=== PATIENT | female | born 1990 | race Asian ===

== ENCOUNTER 2017-01-16 11:11 | Emergency (ER) | payer SELFPAY ==
[~2017-01-16] VITALS: Ht 170.2 cm; Wt 81.8 kg
[~2017-01-16 11:11] MED LIST: AMOXICILLIN 50500 MG PO; IBU800 M1 PO; NORCO 325 MG-51 TAB PO; PERCOCET 325 MG1 TA2 PO; TYLENOL 500MG500 MG PO; ZANTAC 7575 MG PO; ZYRTEC 10MG10 MG PO
[2017-01-16 11:14] VITALS: BP 131/65
[2017-01-16 12:04] LABS: INFLUENZA B NEGATIVE
[2017-01-16] MEDS ORDERED: MOTRIN 400400 MG/TAB PO (13:00)
[2017-01-16] MEDS ORDERED: ZOFRAN 4MG T4 MG/TAB PO (13:02)
[2017-01-16 13:15] VITALS: PULSE 93; TEMP 99
== END 2017-01-16 13:15 | disposition home or self-care (01) ==
LOC: COL.ER 11:11
PROVIDERS: Nurse Practitioner
DX: J11.1 Influenza due to unidentified influenza virus with other respiratory manifestations (principal); I10 Essential (primary) hypertension
CPT/HCPCS: J2405; J7030

== ENCOUNTER 2017-06-12 14:08 | Emergency (ER) | payer SELFPAY ==
[~2017-06-12] VITALS: Ht 170.2 cm; Wt 85.5 kg
[~2017-06-12 14:08] MED LIST changes: +MOTRIN 400400 MG/TAB PO; +ZOFRAN 4MG T4 MG/TAB PO
[2017-06-12 14:14] VITALS: BP 145/85; PULSE 102; TEMP 97.5
[2017-06-12] MEDS ORDERED: AMOXICILLIN875 MG PO (14:52)
== END 2017-06-12 15:11 | disposition home or self-care (01) ==
LOC: COL.ER 14:08
DX: H66.001 Acute suppurative otitis media without spontaneous rupture of ear drum, right ear (principal); F17.210 Nicotine dependence, cigarettes, uncomplicated

== ENCOUNTER 2017-09-09 06:09 | Inpatient (IN) | payer MEDICAID ==
[2017-09-09] VITALS (28 sets, daily range): BP systolic 139–173; BP diastolic 57–99; PULSE 50–90; TEMP 97.6–98.3
[~2017-09-09] VITALS: Ht 170.2 cm; Wt 90.0 kg
[~2017-09-09 06:09] MED LIST changes: +AMOXICILLIN875 MG PO
[2017-09-09] MEDS ORDERED: PRENATAL MVI (06:45)
[2017-09-09 06:52] LABS: BASO % 0.2 % (0.0-2.0); EOS % 0.2 % (0-4.0); GRAN # 9.4 (1.4-6.5); GRAN % 74.8 % (42.2-75.2); HEMATOCRIT 38.4 % (37.0-47.0); HEMOGLOBIN 12.1 g/dl (12.5-16.0); LYMPH # 2.4 (1.2-3.4); LYMPH % 19.3 % (20.0-51.0); MEAN CELL VOLUME 73 fl (80.0-100.0); MEAN CORPUSCULAR HEMOGLOBIN 23 pg (27.0-31.0); MEAN CORPUSCULAR HGB CONC 32 g/dl (33.0-37.0); MEAN PLATELET VOLUME 12.3 fl (7.4-10.4); MONO # 0.6 (0.1-0.6); MONO % 5.1 % (1.7-9.3); PLATELET COUNT 192 K/mm3 (130-400); RED BLOOD COUNT 5.24 M/mm3 (4.10-5.30); WHITE BLOOD COUNT 12.5 K/mm3 (4.8-10.8)
[2017-09-09 08:25] LABS: AMPHETAMINE URINE NEGATIVE; BARBITURATES URINE NEGATIVE; BENZODIAZEPINES URINE NEGATIVE; BUPRENORPHINE URINE NEGATIVE; METHADONE URINE NEGATIVE; OPIATES URINE NEGATIVE; OXYCODONE URINE NEGATIVE; PHENCYCLIDINE URINE NEGATIVE; PROPOXYPHENE URINE NEGATIVE; THC CANNABINOIDS URINE POSITIVE; TRICYCLIC ANTIDEPRESS URINE NEGATIVE
[2017-09-09 08:54] LABS: ADJUSTED CALCIUM 9.7 mg/dL (8.4-10.2); ALBUMIN 3.6 gm/dL (3.5-5.0); BILIRUBIN,TOTAL 0.6 mg/dL (0.0-1.0); CALCIUM 9.4 mg/dL (8.4-10.2); CREATININE, serum 0.88 mg/dL (0.52-1.25); TOTAL PROTEIN 6.9 gm/dL (6.4-8.2)
[2017-09-09 09:24] LABS: HIV 1/2 Antibodies Non-Reactive; HIV-1p24 Antigen Non-Reactive
[2017-09-10 00:30] VITALS: BP 136/78; PULSE 55
[2017-09-10 08:30] VITALS: BP 149/87; PULSE 55; TEMP 97.8
[2017-09-10] MEDS ORDERED: IBU800 M1 PO (08:46)
[2017-09-10] MEDS ORDERED: PROCARDIA XL 3030 MG PO (08:46)
[2017-09-10] MEDS ORDERED: PERCOCET 325 MG1 TA2 PO (08:46)
[2017-09-11 01:09] LABS: RPR (VDRL) Non-reactive (())
[2017-09-11 11:29] LABS: RUBELLA IGG TORCH EIA Negative (())
== END 2017-09-10 12:30 | disposition home or self-care (01) | DRG 775 ==
LOC: LDRO 06:09 → LDR 06:27 → OB 11:00
PROVIDERS: Obstetrics & Gynecology
PROC: 10E0XZZ Delivery of Products of Conception, External Approach (ICD-10-PCS; principal; 2017-09-09)
DX: O48.0 Post-term pregnancy (principal); O99.334 Smoking (tobacco) complicating childbirth; F17.210 Nicotine dependence, cigarettes, uncomplicated; O69.81X0 Labor and delivery complicated by cord around neck, without compression, not applicable or unspecified; Z3A.40 40 weeks gestation of pregnancy; Z37.0 Single live birth
CPT/HCPCS: J0360; J2590; J7120

== ENCOUNTER 2017-12-18 14:42 | Emergency (ER) | payer MEDICAID ==
[~2017-12-18] VITALS: Ht 170.2 cm; Wt 77.3 kg
[~2017-12-18 14:42] MED LIST changes: +PRENATAL MVI; +PROCARDIA XL 3030 MG PO
[2017-12-18 14:48] VITALS: BP 170/86; PULSE 99; TEMP 99.2
[2017-12-18] MEDS ORDERED: AMOXICILLIN 8751 TAB PO (15:29)
== END 2017-12-18 15:53 | disposition home or self-care (01) ==
LOC: COL.ER 14:42
DX: H66.93 Otitis media, unspecified, bilateral (principal); I10 Essential (primary) hypertension